=== PATIENT | male | born 1940 ===

== ENCOUNTER 2020-10-17 11:21 | Outpatient (REF) | payer MEDICARE, MEDICAID, SELFPAY | END 2020-10-17 11:22 | disposition home or self-care (01) | LOC: HO.HAP 11:21 | PROVIDERS: Visit Provider Otolaryngology | DX: Z46.1 Encounter for fitting and adjustment of hearing aid (principal) | CPT/HCPCS: V5267 ==

== ENCOUNTER 2020-11-04 15:32 | Outpatient (REF) | payer MEDICARE, MEDICAID, SELFPAY | END 2020-11-04 15:33 | disposition home or self-care (01) | LOC: HO.HAP 15:32 | PROVIDERS: Visit Provider Otolaryngology | DX: Z46.1 Encounter for fitting and adjustment of hearing aid (principal) | CPT/HCPCS: V5266 ==

== ENCOUNTER 2021-03-13 13:04 | Outpatient (REF) | payer MEDICARE, MEDICAID, SELFPAY ==
--- NOTE | 2021-03-14 12:35 | MHC.AU.AHA ---
Adult Audiological Evaluation Date of Visit: 03/13/21 Manager Mission Used: Family member assisted with Rosana interpretation Reason for Appointment: History of hearing loss. He arrives today to determine if there has been a change in hearing. Previous Hearing Test Results: At ENT, Dr. Medardo Song's office on 08/23/2018- Moderate to moderately-severe sensorineural hearing loss in the left ear, Moderate to severe sensorineural hearing loss in the right ear Ear History: Recent Ear Drainage: None Reported Recent Ear Pain: None Reported Recent Ear Infections: None Reported Previous Ear Surgery: None Reported Hearing Instrument History- Right Ear: Software Solutions Architect: OtSimply [address] Model: Nera2 Pro HS Power Serial Number: [id number] Battery Size: 312 Repair Warranty: 02/25/2021 Dispensed By: [facility] Date of Fittin02/03/2019 Hearing Instrument History- Left Ear: Software Solutions Architect: O[employer]on Model: Nera2 Pro HS Serial Number: [id number] Battery Size: 312 Warranty: Dispensed By: [facility] Date of Fitting: Unknown Otoscopy: Right Ear: Unremarkable Left Ear: Unremarkable Tympanometry: Tympanometry performed due to: To assess integrity of the middle ear system Right Ear: Hypercompliant Middle Ear System (Type Ad) Left Ear: Hypercompliant Middle Ear System (Type Ad) Hearing Evaluation: Transducer(s) Used: Insert Earphones Method: Conventional Audiometry Stimuli Used: Pure Tones Right Ear: Description of Hearing: Moderate to severe sensorineural hearing loss Left Ear: Description of Hearing: Moderately-severe to severe sensorineural hearing loss Speech Recognition Threshold (SRT): Method Used: Monitored Live Voice Stimuli Used: Spondee Words Right Ear: 60 dBHL Left Ear: 65 dBHL Word Discrimination: Method: Recorded Lists Word Lists Used: NU-6 Right Ear: 70% at 95 dBHL (When interpreting results, note that Yi is not the patient's primary language) Left Ear: 70% at 95 dBHL Comparison: Compared to the most recent evaluation: Thresholds have decreased bilaterally. Recommendations: Audiological re-evaluation in one year. See Hearing Aid Follow-Up note for more information. Diagnosis: Primary Diagnosis: H90.3 Bilateral Sensorineural Hearing Loss Services Performed: Comprehensive Audiological Evaluation (CPT 59717), Tympanometry (CPT 53492) Signature: Provider: Kenyatta Moore, CCC-A
--- NOTE | 2021-03-14 12:37 | MHC.AU.HFU ---
Hearing Instrument Follow-Up- Binaural Date of Visit: 03/13/21 Single Stroke Preformer Used: Family member assisted with Rosana interpretation Right Ear: Business Department Chair: Oticon Model: Nera2 Pro HS Power Serial Number: [id number] Repair Warranty: 02/25/2021 Battery Size: 312 Type of Wax Guard: ProWax Dispensed By: [facility] Date of Fittin02/03/2019 Left Ear: Business Department Chair: Oticon Model: Nera2 Pro HS Serial Number: [id number] Repair Warranty: Battery Size: 312 Dispensed By: [facility] Date of Fitting: Unknown Follow-Up Summary: Patient's right hearing aid is not working. Maintenance performed on both instruments. Right side is still not working after maintenance. It was sent for repair out of warranty. Patient's left hearing aid was updated with today's results. He reported a significant improvement in the sound. The right instrument will need to be adjusted when it returns from repair. Recommendations: Recommendations: Patient's family will be contacted when the right hearing aid has returned. Dispensed 42 batteries. Diagnosis Code(s): Primary Diagnosis: H90.3 Bilateral Sensorineural Hearing Loss Signature: Provider: Kenyatta Moore, CCC-A
== END 2021-03-13 13:05 | disposition home or self-care (01) ==
LOC: HO.SH 13:04
PROVIDERS: Visit Provider Physician Assistant
DX: H91.93 Unspecified hearing loss, bilateral (principal)
CPT/HCPCS: 92557; 92567; V5266

== ENCOUNTER 2021-03-13 13:55 | Outpatient (REF) | payer SELFPAY | END 2021-03-13 13:56 | disposition home or self-care (01) | LOC: HO.HAP 13:55 | PROVIDERS: Visit Provider Otolaryngology | DX: H90.3 Sensorineural hearing loss, bilateral (principal); Z46.1 Encounter for fitting and adjustment of hearing aid | CPT/HCPCS: 92557; 92567; V5267 ==

== ENCOUNTER 2021-04-08 09:56 | Outpatient (REF) | payer MEDICARE, MEDICAID, SELFPAY ==
--- NOTE | 2021-04-09 08:29 | MHC.AU.FUL ---
Hearing Instrument Follow-Up Date of Visit: 04/08/21 Director Of Instructional Technology Used: Not Applicable Left Ear: Historical Society Director: Oticon Model: Nera2 Pro HS Serial Number: [id number] Repair Warranty: Loss and Damage Warranty: Service Plan: Battery Size: 312 Color: Restaurant Hourly Team Member: Tubing: Type of Dome: Type of Mold: Type of Wax Guard: Dispensed By: [facility] Date of Fitting: Unknown Follow-Up Summary: Patient brought in left hearing aid stating wax guard falling out of aid. Also says the aid goes in the canal too deep, but that does not have to be fixed. Sending in for repair. Recommendations (Other): Call daughter for picker and packer. Patient is leaving on 04/10/21 for 3 months. Family will ship to patient. [facility] Diagnosis Code(s): Primary Diagnosis: H90.3 Bilateral Sensorineural Hearing Loss Services Performed: SUERO Non-Quantity Charges: HANC: NonBillable Event Signature: Provider: Kenyatta Parish, CCC-A
== END 2021-04-08 09:57 | disposition home or self-care (01) ==
LOC: HO.HAP 09:56
PROVIDERS: Visit Provider Otolaryngology
DX: Z13.89 Encounter for screening for other disorder (principal)

== ENCOUNTER 2021-04-30 16:11 | Outpatient (REF) | payer MEDICARE, MEDICAID, SELFPAY | END 2021-04-30 16:12 | disposition home or self-care (01) | LOC: HO.HAP 16:11 | PROVIDERS: Visit Provider Otolaryngology | DX: Z46.1 Encounter for fitting and adjustment of hearing aid (principal); H90.3 Sensorineural hearing loss, bilateral | CPT/HCPCS: V5014 ==

== ENCOUNTER 2022-03-09 15:43 | Outpatient (REF) | payer MEDICARE, MEDICAID, SELFPAY | END 2022-03-09 15:44 | disposition home or self-care (01) | LOC: HO.HAP 15:43 | PROVIDERS: Visit Provider Otolaryngology | DX: Z13.89 Encounter for screening for other disorder (principal) ==

== ENCOUNTER 2022-03-20 15:35 | Outpatient (REF) | payer MEDICARE, MEDICAID, SELFPAY | END 2022-03-20 15:36 | disposition home or self-care (01) | LOC: HO.HAP 15:35 | PROVIDERS: Visit Provider Otolaryngology | DX: Z46.1 Encounter for fitting and adjustment of hearing aid (principal) | CPT/HCPCS: V5014 ==

== ENCOUNTER 2023-02-24 14:05 | Outpatient (REF) | payer MEDICARE, MEDICAID, SELFPAY ==
--- NOTE | 2023-02-24 17:01 | MHC.AU.HFU ---
Hearing Instrument Follow-Up- Binaural Date of Visit: 02/24/23 Right Ear: Oticon Nera 2 Pro HS ITE, [id number], Default pink Repair Warranty: 02/25/2021 Battery Size: 312 Type of Wax Guard: ProWax Dispensed By: [facility] Date of Fittin02/03/2019 Left Ear: Oticon Nera 2 Pro HS ITE, [id number], Default pink Repair Warranty: 02/25/2021 Battery Size: 312 Type of Wax Guard: Prowax Dispensed By: [facility] Date of Fittin02/03/2019 Follow-Up Summary: The patient is here for a hearing aid check following an updated audiogram. He is accompanied by his daughter who interpreted in English. Hearing has slightly declined overall- see audiogram. The patient reports his right hearing aid is not working well. I replaced the wax guards and microphone covers and brushed the hearing aids bilaterally. Listening check improved, though the right aid has a bit of static. I then re-programmed the hearing aids to today's audiogram. The patient immediately reported improved sound. I offered to send out the right aid due to static but the patient declines at this time. I counseled him to drop off his right aid for repair if the static becomes an issue. HIT box testing shows the right aid is slightly under performance compared to left aid. He inquired about when he's eligible for new aids and next year will be 5 years since his current pair was dispensed. 42 batteries dispensed. No other questions or concerns at this time. Additional follow-up as needed. Diagnosis Code(s): Primary Diagnosis: H90.3 Bilateral Sensorineural Hearing Loss Signature: Provider: Kenyatta Neal, [facility]
== END 2023-02-24 14:06 | disposition home or self-care (01) ==
LOC: HO.SH 14:05
PROVIDERS: Visit Provider Physician Assistant
DX: H90.3 Sensorineural hearing loss, bilateral (principal)
CPT/HCPCS: 92553; 92555; 92593; 92595; 99499; V5020; V5266

== ENCOUNTER 2023-04-16 11:15 | Outpatient (REF) | payer MEDICARE, MEDICAID, SELFPAY | END 2023-04-16 11:16 | disposition home or self-care (01) | LOC: HO.HAP 11:15 | PROVIDERS: Visit Provider Otolaryngology | DX: Z13.89 Encounter for screening for other disorder (principal) ==

== ENCOUNTER 2023-05-13 09:35 | Outpatient (REF) | payer MEDICARE, MEDICAID, SELFPAY | END 2023-05-13 09:36 | disposition home or self-care (01) | LOC: HO.HAP 09:35 | PROVIDERS: Visit Provider Physician Assistant | DX: Z46.1 Encounter for fitting and adjustment of hearing aid (principal); H90.3 Sensorineural hearing loss, bilateral | CPT/HCPCS: 99499 ==

== ENCOUNTER 2023-08-27 15:43 | Outpatient (REF) | payer MEDICARE, MEDICAID, SELFPAY | END 2023-08-27 15:44 | disposition home or self-care (01) | LOC: HO.HAP 15:43 | PROVIDERS: Visit Provider Otolaryngology | DX: Z46.1 Encounter for fitting and adjustment of hearing aid (principal); H90.3 Sensorineural hearing loss, bilateral | CPT/HCPCS: 92592; 99499; V5266 ==

== ENCOUNTER 2023-08-31 14:51 | Outpatient (REF) | payer MEDICARE, MEDICAID, SELFPAY | END 2023-08-31 14:52 | disposition home or self-care (01) | LOC: HO.HAP 14:51 | PROVIDERS: Visit Provider Otolaryngology | DX: Z13.89 Encounter for screening for other disorder (principal) ==

== ENCOUNTER 2024-04-25 15:39 | Outpatient (REF) | payer MEDICARE, MEDICAID, SELFPAY | END 2024-04-25 15:40 | disposition home or self-care (01) | LOC: HO.HAP 15:39 | PROVIDERS: Visit Provider Physician Assistant | DX: Z46.1 Encounter for fitting and adjustment of hearing aid (principal) | CPT/HCPCS: V5266 ==

== ENCOUNTER 2024-05-01 15:40 | Outpatient (REF) | payer MEDICARE, MEDICAID, SELFPAY | END 2024-05-01 15:41 | disposition home or self-care (01) | LOC: HO.HAP 15:40 | PROVIDERS: Visit Provider Otolaryngology | DX: Z13.89 Encounter for screening for other disorder (principal) ==

== ENCOUNTER 2024-09-12 15:52 | Outpatient (REF) | payer MEDICARE, MEDICAID, SELFPAY ==
--- NOTE | 2024-09-12 17:07 | MHC.AU.HA3 ---
Hearing Instrument Follow-Up- Binaural Date of Visit: 09/12/24 Right Ear: Make, Model, Color, Serial Number: Sonny Dovera2Pro HS SN: [id number] Color: [place] Implementation Specialist Payroll Repair Warranty: 02/25/2021 Implementation Specialist Payroll Loss and Damage Warranty: 02/25/2021 Battery Size: 312 Type of Wax Guard: No Wax Dispensed By: [facility] Date of Fittin02/03/2019 Left Ear: Make, Model, Color, Serial Number: Sonny Dovera2Pro HS SN: [id number] Color: [place] Implementation Specialist Payroll Repair Warranty: 02/25/2021 Implementation Specialist Payroll Loss and Damage Warranty: 02/25/2021 Battery Size: 312 Type of Wax Guard: No Wax Dispensed By: [facility] Date of Fittin02/03/2019 Follow-Up Summary: Updated hearing test - see audio. HAs missing wax guards, reported they do not work with the wax guards in place. Cleaned both HAs. Replaced microphone covers, which were almost completey occluded. Lots of wax build up inside SUERO where wax guard should have been, able to successfully clean out. Replaced new wax guards without issue. Ran through dehumidifier. Listening check demonstrated HAs amplifying clearly. Recommendations: Hearing instrument follow-up or maintenance as needed. Please contact our clinic with any questions or concerns. Diagnosis Code(s): Primary Diagnosis: H90.3 Bilateral Sensorineural Hearing Loss Signature: Provider: Argelia Holloway, [facility]
--- NOTE | 2024-09-12 17:11 | MHC.AU.MED ---
Medical Clearance for Hearing Instrumentation Date: 09/12/24 Patient Name: Demarcus Barcenas Date of : 1940 Primary Care Provider: JOSÉ Cooper We have seen your patient on 09/12/24 and have determined that they are a candidate for amplification (See accompanying report). Specifically, they would benefit from: Hearing aid use in both ears There is a statute that addresses Medical Evaluation Requirements prior to fitting a patient with a hearing aid. According to [place] statute 265 CMR:6.03(1), (a) General. Except as provided in 265 CMR 6.03(1)(b), a tearoom host/hostess shall not sell a hearing aid unless the prospective user has presented to the tearoom host/hostess a written statement signed by a licensed physician that states that the patient's hearing loss has been medically evaluated and the patient may be considered a candidate for a hearing aid. The medical evaluation must have taken place within the preceding six months. Please note: Due to the [place] Statute referenced above, we cannot accept a signature other than that of a licensed physician. RESERVE OPERATOR and PA signatures cannot be accepted. I am in agreement with the above recommendation. There is no medical contraindication for hearing instrumentation. Physician Signature Date Physician Name (Printed)
--- NOTE | 2024-09-13 07:56 | MHC.AU.HA1 ---
Hearing Aid Evaluation Date of Visit: 09/12/24 Historical Information: Description of Hearing: Moderately-severe to severe sensorineural hearing loss, bilaterally Current personal amplification information: Oticon [id number] HS fit in January 2019 Summary: Accompanied by daughter, Sid who interpreted in Tunisian. Ready to pursue upgraded technology. Prefers to stay with custom hearing aid, opted to switch manufacturers for rechargeability. Impressions taken, bilaterally, without incident (in hold drawer). Demarcus is leaving at the beginning of September to return to his [place], for a few months. New HAs will likely not arrive prior to his departure. Advised new HAs need to be fit within six months of hearing test. Opted to schedule HAF on 02/27/2025, just before test expires. Will order HAs in January 2025 pending medical clearance. Hearing Aid Prescription: Based on the individual?s shared listening needs, communication environments, dexterity, desire for connectivity, and personal preferences, the following prescription for amplification has been made: Right ear: Make, Model, Color: N(i)² 2000 ITC-R Color: [place] Battery Size: Rechargeable Left ear: Left ear prescription to be same as Right Hearing Aid above: Make, Model, Color: [employer]ay Technologies AI 2000 ITC-R Color: [place] Battery Size: Rechargeable Accessories/Assistive Technology: Emery Wheel Worker Plan of Care: Patient wishes to purchase hearing aids as prescribed Action Taken/Action Needed: Medical Clearance to be requested from PCP/ENT Comments: HAF scheduled 02/27/2025 Primary Diagnosis: H90.3 Bilateral Sensorineural Hearing Loss Signature: Provider: Argelia Holloway, [facility]
== END 2024-09-12 15:53 | disposition home or self-care (01) ==
LOC: HO.SH 15:52
PROVIDERS: PCP Physician Assistant; Visit Provider Physician Assistant
DX: Z01.118 Encounter for examination of ears and hearing with other abnormal findings (principal); Z46.1 Encounter for fitting and adjustment of hearing aid; H90.3 Sensorineural hearing loss, bilateral
CPT/HCPCS: 92552; 92555; 92591; 92593; 99499; V5266; V5275

== ENCOUNTER 2024-09-12 16:36 | Outpatient (REF) | payer SELFPAY | END 2024-09-12 16:37 | disposition home or self-care (01) | LOC: HO.HAP 16:36 | PROVIDERS: Visit Provider Physician Assistant | DX: Z46.1 Encounter for fitting and adjustment of hearing aid (principal) | CPT/HCPCS: V5267 ==

== ENCOUNTER 2025-02-27 15:20 | Outpatient (REF) | payer MEDICARE, MEDICAID, SELFPAY ==
--- NOTE | 2025-02-27 16:40 | MHC.AU.HA2 ---
Hearing Instrument Fitting- Adult- Binaural Date of Visit: 02/27/25 Hearing Instruments Dispensed: Right Ear: Make, Model, Color, Serial Number: Christina BAILEY 1999 ITC-R Color: Jalyn S#[id number] [employer] Repair Warranty: 02/16/2028 [employer] Loss and Damage Warranty: 02/16/2028 [facility] Service Plan: Battery Size: Rechargeable Die Repairer Stamping/Slim Tube: [place]/Dome/CShell/SlimTip: Type of Wax Guard: No Wax Left Ear: Make, Model, Color, Serial Number: Christina BAILEY 1999 ITC-R Color: [employer] S#[id number] [employer] Repair Warranty: 02/16/2028 [employer] Loss and Damage Warranty: 02/16/2028 [facility] Service Plan: Battery Size: Rechargeable Die Repairer Stamping/Slim Tube: [place]/Dome/CShell/SlimTip: Type of Wax Guard: No Wax Accessories/Assistive Technology: Christina Line Puller S#[id number] Warranty 02/16/2028 Summary of Fitting: Here for fitting with Christina BAILEY 1999 ITC-R hearing aids. Appointment interpreted by daughter. Experienced hearing aid user, new to rechargeable batteries. Programmed and ran feedback security shift manager. Could not run real ear due to equipment malfunction, will run and bill for at follow up. Patient pleased with sound quality, reports improvement over old pair. Reviewed cleaning/wax guards, spark plug tester, basic use. Will not be pairing with phone. Reviewed warranty information and signed delivery receipt. Follow up in 2-3 weeks recommended. Recommendations: Recommendations: A hearing instrument follow-up is recommended in 2-3 weeks. Diagnosis Code(s): Primary Diagnosis: H90.3 Bilateral Sensorineural Hearing Loss Signature: Provider: Kenyatta Grullon, CCC-A
== END 2025-02-27 15:21 | disposition home or self-care (01) ==
LOC: HO.HAP 15:20
PROVIDERS: Visit Provider Physician Assistant
DX: Z46.1 Encounter for fitting and adjustment of hearing aid (principal); H90.3 Sensorineural hearing loss, bilateral
CPT/HCPCS: V5011; V5160; V5259

== ENCOUNTER 2025-03-07 15:39 | Outpatient (REF) | payer MEDICARE, MEDICAID, SELFPAY ==
--- OUTSIDE RECORDS SUMMARY | 2025-03-07 15:43 | XMS_ITS | Clinical Summary ---
Author Organization [facility] Address [address] [place] [address] Care Team Providers Care Retort Forker Name Role Phone Annalisa Grant PA-C Primary Care Provider [phone] Source Comments PLEASE NOTE, if this patient is a minor, it may be UNLAWFUL to discuss sensitive information that is contained in these records (such as FAMILY PLANNING, MENTAL HEALTH or SUBSTANCE ABUSE) with the minor patient's parent or other person without the patient's specific authorization.[facility] Allergies No known active allergies Medications amoxicillin (AMOXIL) 875 mg tabletIndications: Acute nonsuppurative otitis media of left ear Take 1 Tab by mouth 2 (two) times daily. 20 Tab 0 6 Active meloxicam (MOBIC) 15 mg tabletIndications: Chronic left shoulder pain,Left cervical radiculopathy 1 tab po daily for 7 days then 1 tab po daily prn shoulder pain 30 Tablet 5 2 Active ketoconazole (NIZORAL) 2 % shampooIndications :Seborrheic dermatitis APPLY TOPICALLY EVERY DAY NEEDED FOR ITCHING 120 mL 5 3 Active carbamide peroxide (DEBROX) 6.5 % otic solutionIndication s:Bilateral impacted cerumen Place 5 Drops into both ears 2 (two) times daily 15 mL 2 3 Active clobetasoL (TEMOVATE) 0.05 % external solutionIndication s:Atopic dermatitis of scalp Apply topically once daily as needed (scalp pruritis) 50 mL 2 3 Active Active Problems Problem Noted Date Diagnosed Date Pre-diabetes 09/08/2023 Hypertriglyceridemia 09/08/2023 Hearing loss, bilateral 07/22/2018 Immunizations Immunization Administration Dates Next Due Flu, Adjuvant, 65y+ (Fluad) 10/08/2021 Flu, High Dose, 65y+, Fluzon e High Dose 09/08/2023,08/24/2020 Influenza (FLUZONE), high-do se, trivalent, PF 08/18/2018,08/19/2017,08/26/2016,2014 PNEUMOCOCCAL CONJUGATE PCV 2 0 (Prevnar) 09/29/2022 Social History Tobacco Use Types Packs/Day Years Used Date Smoking Tobacco: Never Smokeless Tobacco: Never Tobacco Cessation:Counseling Given: Not Answered Alcohol Use Standard Drinks/Week Comments No 0 (1 standard drink = 0.6 oz pur e alcohol) Social Connections Answer Date Recorded Connectedness 0 07/12/2024 Financial Resource Strain Answer Date R ecorded Financial Resource Strain 0 2018 Stress Answer Date Recorded Stress 0 06/17/2019 Physical Activity Answer Date Recorded Physical Activity 0 06/17/2019 Food Insecurity Answer Date Recorded Food 0 07/20/2024 Transportation Needs Answer Date Record ed Transportation 0 06/17/2019 Housing Stability Answer Date Recorded Housing 0 06/17/2019 Safety and Environment Answer Date Mohinder rded Safety 0 06/17/2019 Utilities Answer Date Recorded Utilities 0 06/17/2019 Employment Answer Date Recorded Stress 0 07/12/2024 Sex and Gender Information Value Date Recorded Sex Assigned at Male 08/19/2017 1:30 PM PDT Legal Sex Male 11:36 AM PDT Gender Identity Male 08/19/2017 1:30 PM PDT Sexual Orientation Choose not to disclose 2016 1:30 PM PDT Last Filed Vital Signs Vital Sign Reading Time Taken Comments Blood Pressure 138/70 09/08/2023 3:35 PM EST Pulse 60 09/08/2023 3:35 PM EST Temperature 36.7 ??C (98 ??F) 09/29/2022 3:38 PM EST Respiratory Rate 16 09/08/2023 3:35 PM EST Oxygen Saturation 97% 09/08/2023 3:35 PM EST Inhaled Oxygen Concentration - - Weight 94.3 kg (208 lb) 09/08/2023 3:35 PM EST Height 180.3 cm (5' 11 ) 09/08/2023 3:35 PM EST Body Mass Index 29.01 09/08/2023 3:35 PM EST Plan of Treatment Health Maintenance Due Date Last Done Comments Tobacco Screening 1940 Advanced Care Planning 1940 Imm-Zoster, Recombinant (1 of 2) 1990 Falls Prevention 2005 Medicare Annual Wellness Visit 09/29/2023 1 11/30/2021, 02/28/2018, 08/18/2016, Additional history exists [id number] ( season) 2024 Hypertension Screening (#1) 09/07/2024 Diabetes Screening 09/08/2024 09/08/2023, 1 11/08/2022, 09/29/2022, Additional history exists Alcohol and Drug Screen 10/25/2024 09/29/20, 02/28/2018, 07/08/2015, Additional history exists Depression Annual Screen 10/25/2024 09/30/2022, 06/25 Imm-Pneumococcal 65+ Discontinued 09/29/2022 Imm-Influenza Discontinued 09/08/2023, 09/24, 08/24/2020, Additional history exists Imm-DTaP/Tdap/Td Discontinued Procedures Procedure Name Priority Date/Time Associated Diagnosis Comments COMPREHENSIVE METABOLIC PANEL Routine 09/08/2023 4:22 PM EST Pre-diabetes Hypertriglyceridem ia from Last 3 Months or Most Recently Relevant to Health Maintenance Results * (ABNORMAL) COMPREHENSIVE METABOLIC PANEL (09/08/2023 4:22 PM EST) GLUCOSE 92 65 - 99 mg/dL [facility] Comment: ?Fasting reference interval UREA NITROGEN (BUN) 23 7 - 25 mg/dL [facility] CREATININE (blood) 1.29(H) 0.70 - 1.22 mg/dL [facility] EGFR 55(L) > OR = 60 mL/min/1. 73m2 [facility] BUN/CREATININE RATIO 18 6 - 22 (calc) [facility] SODIUM 137 135 - 146 mmol/L [facility] POTASSIUM 4.5 3.5 - 5.3 mmol/L [facility] CHLORIDE 103 98 - 110 mmol/L [facility] CARBON DIOXIDE 25 20 - 32 mmol/L [facility] CALCIUM 9.5 8.6 - 10.3 mg/dL [facility] PROTEIN, TOTAL 7.7 6.1 - 8.1 g/dL [facility] ALBUMIN 4.6 3.6 - 5.1 g/dL [facility] GLOBULIN 3.1 1.9 - 3.7 g/dL (calc) [facility] ALBUMIN/GLOBULI N RATIO 1.5 1.0 - 2.5 (calc) [facility] BILIRUBIN, TOTAL 0.5 0.2 - 1.2 mg/dL [facility] ALKALINE PHOSPHATASE 55 35 - 144 U/L [facility] AST 15 10 - 35 U/L [facility] ALT 15 9 - 46 U/L [facility] Blood Blood / Unknown 09/08/2023 4 :22 PM EST 09/08/2023 4:23 PM EST us Annalisa Grant PA-C LAB - BLOOD DRAW Edited Resu lt - Final [facility] [address] [address], [facility] [address] [address] from Last 3 Months or Most Recently Relevant to Health Maintenance [place] Care Teams Retort Forker Relationship Specialty Start Date End Date Annalisa Grant PA-C [facility] [place] [id number] PCP - General Internal Medicine 12/07/14
== END 2025-03-07 15:40 | disposition home or self-care (01) ==
LOC: HO.SH 15:39
PROVIDERS: Visit Provider Physician Assistant
DX: Z13.89 Encounter for screening for other disorder (principal)

== ENCOUNTER 2025-03-08 16:05 | Outpatient (REF) | payer MEDICARE, MEDICAID, SELFPAY ==
--- OUTSIDE RECORDS SUMMARY | 2025-03-08 16:10 | XMS_ITS | Clinical Summary ---
Author Organization [facility] Address [address] [place] [address] Care Team Providers Care Mail Reader Name Role Phone Annalisa Grant PA-C Primary Care Provider [phone] Source Comments PLEASE NOTE, if this patient [...] 1 11/30/2021, 02/28/2018, 08/18/2016, Additional history exists [id number] ( season) 2024 Hypertension Screening (#1) 09/07/2024 [...] EST) GLUCOSE 92 65 - 99 mg/dL [facility] Comment: ?Fasting reference interval UREA NITROGEN (BUN) 23 7 - 25 mg/dL [facility] CREATININE (blood) 1.29(H) 0.70 - 1.22 mg/dL [facility] EGFR 55(L) > OR = 60 mL/min/1. 73m2 [facility] BUN/CREATININE RATIO 18 6 - 22 (calc) [facility] SODIUM 137 135 - 146 mmol/L [facility] POTASSIUM 4.5 3.5 - 5.3 mmol/L [facility] CHLORIDE 103 98 - 110 mmol/L [employer] [facility] CARBON DIOXIDE 25 20 - 32 mmol/L [facility] [facility] CALCIUM 9.5 8.6 - 10.3 mg/dL [facility] [facility] PROTEIN, TOTAL 7.7 6.1 - 8.1 g/dL [facility] [facility] ALBUMIN 4.6 3.6 - 5.1 g/dL [employer] [facility] GLOBULIN 3.1 1.9 - 3.7 g/dL (calc) [facility] [facility] ALBUMIN/GLOBULI N RATIO 1.5 1.0 - 2.5 (calc) [facility] [facility] BILIRUBIN, TOTAL 0.5 0.2 - 1.2 mg/dL [employer] [facility] ALKALINE PHOSPHATASE 55 35 - 144 U/L [employer] [facility] AST 15 10 - 35 U/L [employer] [facility] ALT 15 9 - 46 U/L [employer] [facility] Blood Blood / Unknown 09/08/2023 4 :22 PM EST 09/08/2023 4:23 PM EST us Annalisa Grant PA-C LAB - BLOOD DRAW Edited Resu lt - Final [employer] [facility] [address] [address], [employer] [address] [phone] from Last 3 Months or Most Recently Relevant to Health Maintenance [place] Care Teams Mail Reader Relationship Specialty Start Date End Date Annalisa Grant PA-C [facility] [place] [phone] PCP - General Internal Medicine 12/07/14
== END 2025-03-08 16:06 | disposition home or self-care (01) ==
LOC: HO.HAP 16:05
PROVIDERS: Visit Provider Physician Assistant
DX: Z13.89 Encounter for screening for other disorder (principal)

== ENCOUNTER 2025-08-28 07:48 | Outpatient (REF) | payer MEDICARE, MEDICAID, SELFPAY ==
--- OUTSIDE RECORDS SUMMARY | 2025-08-28 07:52 | XMS_ITS | Clinical Summary ---
Author Organization [facility] Address [address] [place] [address] Care Team Providers Care Receiver Stocker Name Role Phone Annalisa Grant PA-C Primary Care Provider [phone] Source Comments PLEASE NOTE, if this patient [...] PF 08/18/2018,08/19/2017,08/26/2016,2014 PNEUMOCOCCAL CONJUGATE PCV 2 0 (Prevnar 20) 09/29/2022 Social History Tobacco Use Types Packs/Day [...] 60 09/08/2023 3:35 PM EST Temperature 36.7 C (98 F) 09/29/2022 3:38 PM EST Respiratory Rate 16 09/08/2023 3:35 PM EST Oxygen Saturation 97% 09/08/2023 3:35 PM EST Inhaled Oxygen Concentration - - Weight 94.3 kg (208 lb) 09/08/2023 3:35 PM EST Height 180.3 cm (5' 11 ) 09/08/2023 3:35 PM EST Body Mass Index 29.01 09/08/2023 3:35 PM EST Plan of Treatment Upcoming Encounters Date Type Department Care Team (Late st Contact Info) Description 08/28/2025 3:00 PM EST Office Visit [facility] [address] [place] [address] Annalisa Grant PA-C [address] [place] [address] Health Maintenance Due Date Last Done Comments Tobacco Screening 1940 Advanced Care Planning 1940 Medicare Annual Wellness Visit 1958 Imm-Zoster, Recombinant (1 of 2) 1990 Falls Prevention 2005 Imm-RSV (adult) (1 - 1-dose 75+ series) 2015 Hypertension Screening (#1) 09/07/2024 Diabetes Screening 09/08/2024 09/08/2023, 1 11/08/2022, 09/29/2022, Additional history exists Alcohol and Drug Screen 10/25/2024 09/29/20, 02/28/2018, 07/08/2015, Additional history exists Depression Annual Screen 10/25/2024 09/30/2022, 06/25 [id number] ( season) 2025 Imm-Pneumococcal 50+ Discontinued 09/29/2022 Imm-Influenza Discontinued 09/18/2024, 08/25, 10/08/2021, Additional history exists Imm-DTaP/Tdap/Td Discontinued Procedures Procedure Name Priority Date/Time Associated Diagnosis Comments COMPREHENSIVE METABOLIC PANEL Routine 09/08/2023 4:22 PM EST Pre-diabetes Hypertriglyceridem ia from Last 3 Months or Most Recently Relevant to Health Maintenance Results * (ABNORMAL) COMPREHENSIVE METABOLIC PANEL (09/08/2023 4:22 PM EST) GLUCOSE 92 65 - 99 mg/dL [facility] Comment: Fasting reference interval UREA NITROGEN (BUN) 23 7 - 25 mg/dL [facility] CREATININE (blood) 1.29(H) 0.70 - 1.22 mg/dL [facility] EGFR 55(L) > OR = 60 mL/min/1. 73m2 [facility] BUN/CREATININE RATIO 18 6 - 22 (calc) [facility] SODIUM 137 135 - 146 mmol/L [facility] POTASSIUM 4.5 3.5 - 5.3 mmol/L [facility] CHLORIDE 103 98 - 110 mmol/L [facility] CARBON DIOXIDE 25 20 - 32 mmol/L [facility] CALCIUM 9.5 8.6 - 10.3 mg/dL [facility] PROTEIN, TOTAL 7.7 6.1 - 8.1 g/dL [facility] ALBUMIN 4.6 3.6 - 5.1 g/dL [facility] GLOBULIN 3.1 1.9 - 3.7 g/dL (calc) [facility] ALBUMIN/GLOBULI N RATIO 1.5 1.0 - 2.5 (calc) [facility] BILIRUBIN, TOTAL 0.5 0.2 - 1.2 mg/dL [facility] ALKALINE PHOSPHATASE 55 35 - 144 U/L [facility] AST 15 10 - 35 U/L [facility] ALT 15 9 - 46 U/L [facility] Blood Blood / Unknown 09/08/2023 4 :22 PM EST 09/08/2023 4:23 PM EST Annalisa Grant PA-C LAB - BLOOD DRAW Edited Resu lt - Final [facility] [address] [id number], [facility] [address] [id number] from Last 3 Months or Most Recently Relevant to Health Maintenance [place] Care Teams Receiver Stocker Relationship Specialty Start Date End Date Annalisa Grant PA-C [address] [place] [address] PCP - General Internal Medicine 12/07/14
== END 2025-08-28 07:49 | disposition home or self-care (01) ==
LOC: HO.SH 07:48
PROVIDERS: Visit Provider Physician Assistant
DX: Z01.118 Encounter for examination of ears and hearing with other abnormal findings (principal); H90.3 Sensorineural hearing loss, bilateral
CPT/HCPCS: 92552; 92555

== ENCOUNTER 2025-08-28 08:23 | Outpatient (REF) | payer SELFPAY | END 2025-08-28 08:24 | disposition home or self-care (01) | LOC: HO.HAP 08:23 | PROVIDERS: Visit Provider Physician Assistant | DX: Z46.1 Encounter for fitting and adjustment of hearing aid (principal) | CPT/HCPCS: V5267 ==

== ENCOUNTER 2025-09-13 12:37 | Outpatient (REF) | payer MEDICARE, MEDICAID, SELFPAY ==
--- OUTSIDE RECORDS SUMMARY | 2025-09-13 18:26 | XMS_ITS | Continuity of Care Document ---
Author Organization [place] - [facility], [facility] Address [address] [place] [address] Assessment Encounter Date Assessment Date Assessment LastModified by Organization Details LastModified Time 08/27/2025 08/27/2025 85-year-old Danish-speak ing male presents with his daughter for wax removal. Cerumen impaction was partially obstructing the left external auditory canal and removed using a combination of instruments and suction. Patient tolerated the procedure well. Tympanic membranes are otherwise intact with well aerated middle ear spaces. He will follow up with his ride attendant for hearing aid maintenance per their recommendation s. Otherwise, I will see him back in 6 months for repeat debridement. All questions were answered. [email or web address] Not available 09/02/2025 16:43:38 Plan of Treatment Reminders Order Date Submit Date Provider Last Modified By Organization Details Last Modified Time Details Appointments Establish ed 15 2025 02:15P M JOSÉ CASTLE Not available Not available Not available Lab None recorded. Referral None recorded. Procedures None recorded. Surgeries None recorded. Imaging None recorded. Medication Orders None recorded. Patient TargetsNo targets recorded. Patient InstructionsNo instructions recorded. Reason for Referral None Reported. Problems Name Problem SNOMED Code Status Onset Date Resolution Date Notes Provider Name and Address Organization Details Recorded Time Impacted cerumen of bilateral ears 73995901830 32829 Active 2020 Impacted cerumen, bilateral ; Note: Date Diagnosed : 1 4:46 PM (H61.23) Not Available [facility] 4 03:34:22 Impacted cerumen in left ear 14494110261 70634 Active 2024 JOSÉ CASTLE [address] [facility] [address], [place], [address] , [facility] - [facility] 16:43:47 Problem Notes None recorded. Procedures Surgical History Date Name Laterality Status Provider Name and Address Organization Details Recorded Time Cerumen removal without microscope left completed JOSÉ CASTLE [address] [facility],[place] [place] [address], [place], [address], [facility] - [facility] 09/02/2025 16:39:55 Imaging Results None recorded. Procedure Notes None recorded. Medical Equipment None Reported. Vitals Date Recorded Body height Body mass index (BMI) Body weight Provider Name and Address Organization Details Last Updated DateTime 08/27/2025 177.8 cm 29 kg/m2 83934.66 g Riya Pilo [place] - [facility] 08/27/2025 15:01:13 Social History None recorded. Functional Status None recorded. Mental Status None recorded. Family History Nothing Reported. Medical History No medical history recorded. Past Encounters Encounter ID Performer Location Encounter Start Date Encounter Closed Date Diagnosis/Indication Diagnosis SNOMED-CT Code Diagnosis ICD10 Code Diagnosis IMO Codes Diagnosis Note [id number] JOSÉ CASTLE [facility] [address] [place] [address] 08/27/2025 14:54:14 08/27/2025 15:33:20 Impacted cerumen in left ear 5067320875 251588 H61.22 7924941 Health Concerns Section Related Observation LastModified by Organization Detai ls LastModified Time None Recorded Concern Status LastModified by Organization Details LastModified Time None Recorded Payers Encounter Date Sequence Insurance Name Policy Number Policy Adamson Covered Member ID Adamson Member ID Guarantor Name 08/27/2025 2 [place] Demarcus Issawyer [id number] Demarcus Minoreisuterri 08/27/2025 1 [place] [employer] Demarcus Barcenas [id number] Demarcus Rojas Notes Date Note Type Note Provider Name and Address Organization Details Recorded Time 08/27/2025 text/html ROS as noted in the HPI 85-year-old Danish-speaking male presents with his daughter for wax removal. Patient has no acute concerns to report regarding his ears. 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 [place], [address] [facility],[address] [place] [address], [place], [address], [facility] - [facility] 09/03/2025 12:17:32
--- OUTSIDE RECORDS SUMMARY | 2025-09-13 18:26 | XMS_ITS | Data Portability ---
Author Organization [place] - [facility], [facility] Address [address] [address] Assessment Encounter Date Assessment Date Assessment LastModified by Organization Details LastModified Time 08/27/2025 08/27/2025 85-year-old Grenadian-speak ing male presents with his daughter for wax removal. Cerumen impaction was partially obstructing the left external auditory canal and removed using a combination of instruments and suction. Patient tolerated the procedure well. Tympanic membranes are otherwise intact with well aerated middle ear spaces. He will follow up with his security operations center operator for hearing aid maintenance per their recommendation [...] Recorded Time Impacted cerumen of bilateral ears 62461433170 53090 Active 2020 Impacted cerumen, bilateral ; Note: Date Diagnosed : 1 4:46 PM (H61.23) Not Available [facility] 4 03:34:22 Impacted cerumen in left ear 14011097973 14400 Active 2024 JOSÉ CASTLE [address], [address] , [place] - [facility] 16:43:47 Problem Notes None recorded. Procedures Surgical History Date Name Laterality Status Provider Name and Address Organization Details Recorded Time Cerumen removal without microscope left completed JOSÉ CASTLE [address] [facility],[address] [address], [place], [address], [place] - [facility] 09/02/2025 16:39:55 Imaging Results None recorded. Procedure Notes None recorded. Medical Equipment None Reported. Vitals Date Recorded Body height Body mass index (BMI) Body weight Provider Name and Address Organization Details Last Updated DateTime 08/27/2025 177.8 cm 29 kg/m2 43663.66 g Riya Daigle [place] - [facility] 08/27/2025 15:01:13 Social History None recorded. Functional Status None recorded. Mental Status None recorded. Family History Nothing Reported. Medical History No medical history recorded. Past Encounters Encounter ID Performer Location Encounter Start Date Encounter Closed Date Diagnosis/Indication Diagnosis SNOMED-CT Code Diagnosis ICD10 Code Diagnosis IMO Codes Diagnosis Note [id number] JOSÉ CASTLE [facility] [address] [place] [address] 08/27/2025 14:54:14 08/27/2025 15:33:20 Impacted cerumen in left ear [id number] 279075 H61.22 0914368 Health Concerns Section Related Observation LastModified by Organization Detai ls LastModified Time None Recorded Concern Status LastModified by Organization Details LastModified Time None Recorded Advance Directives Directive None Recorded Payers Insurance Date Sequence Insurance Name Policy Number Policy Adamson Covered Member ID Adamson Member ID Guarantor Name 08/27/2025 2 [place] Demarcus Issawyer [id number] Demarcus Rojas 08/27/2025 1 [place] [employer] Demarcus Narinder [id number] Demarcus Rojas Notes Date Note Type Note Provider Name and Address Organization Details Recorded Time 08/27/2025 text/html ROS as noted in the HPI 85-year-old Grenadian-speaking male presents with his daughter for wax removal. Patient has no acute concerns to report regarding his ears. 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 Kade [place], [address] [facility],[address] [address], [place], [address], [facility] - [facility] 09/03/2025 12:17:32
== END 2025-09-13 12:38 | disposition home or self-care (01) ==
LOC: HO.HAP 12:37
PROVIDERS: Visit Provider Physician Assistant
DX: Z13.89 Encounter for screening for other disorder (principal)

== ENCOUNTER 2025-09-14 14:01 | Outpatient (REF) | payer MEDICARE, MEDICAID, SELFPAY | END 2025-09-14 14:02 | disposition home or self-care (01) | LOC: HO.HAP 14:01 | DX: Z13.89 Encounter for screening for other disorder (principal) ==